=== PATIENT | female | born 1940 | race Caucasian/White ===

== ENCOUNTER 2016-11-18 16:07 | Observation (INO) | payer MEDICARE, OTHER ==
[2016-11-18] MEDS ORDERED: GADODIAMIDE PF 287 MG/ML 20 ML VIAL (for RAD MRI) IVCONTRAST ONE (16:08)
[2016-11-18 16:17] VITALS: BP 132/58; PULSE 82; RESP 18; TEMP 97; O2SAT 99
[2016-11-18] MEDS ORDERED: ESTR1TAB PO (16:34)
[2016-11-18] MEDS ORDERED: SUMA100T2 PO (16:34)
[2016-11-18] MEDS ORDERED: ALPR0.5T3 PO (16:34)
[2016-11-18] MEDS ORDERED: CALC1TAB87 PO (16:36)
[2016-11-18] MEDS ORDERED: GLUC1CAP16 PO (16:36)
[2016-11-18] MEDS ORDERED: ASPI81CH CHEW (16:36)
[2016-11-18] MEDS ORDERED: VITATAB43 PO (16:36)
--- NOTE | 2016-11-18 16:44 | PD ---
HPI Chief Complaint: Neuro Symptoms/ Deficits Time Seen by Provider: 16:44 Travel History International Travel<30 days: No Contact w/Intl Traveler<30days: No Traveled to known affect area: No History of Present Illness HPI 76-year-old female came to the emergency room with increasing frequency of short lasting episodes of paresthesia and numbness of the right half of her upper lip, upper and lower gums and the right half of her tongue for past 4 days. Since yesterday this is associated with on and off dizziness with the room has been spinning. Today couple of times she also felt her right index and middle finger to go numb as well. No history of any weakness of her either of her extremities. Patient has a history of macular degeneration and hence not much visual change than her baseline. She had gone to her retina specialist when the dizziness started again at which point she was recommended to come to the emergency room to be evaluated. No history of headache or chest pain. Vital signs were stable. Prior to these 4 days patient has never had this kind of symptoms before. She has no history of CVA. Patient has history of migraines but has not had it for many years. Patient says that each time she gets these episodes they last less than 5 minutes. They have been increasing in frequency and number since this started. Her last episode was at around 3:30 PM today. [facility] Past Medical History Narrative Medical List of her past medical, surgical, social and family history is reviewed from the nursing note. Arthritis: Yes Migraines: Yes Tetanus Vaccination: < 5 Years Influenza Vaccination: Yes ?: Not Past Surgical History Hysterectomy: Yes Tonsillectomy: Yes Other Surgery: Yes (cysts removed on bilat breast, skin cancer removed from right arm) Social History Alcohol Use: No Tobacco Use: No Substance Use: No Allergies-Medications (Allergen,Severity, Reaction): Coded Allergies: Penicillins (Verified Allergy, Severe, 11/18/16) Comments List of her allergies reviewed from the nursing note. Reported Meds & Prescriptions Reported Meds & Active Scripts Active Reported Avastin Inj (Bevacizumab) 25 Mg/Ml Inj 25 Mg PO MONTHLY Glucosamine Chondroitin (Atfedfrmmvm-Fukrlxpjjav-Aep C-) 500 Mg-400 Mg Cap 1, 000 Mg PO DAILY Calcium 600 with Vitamin D (Calcium Carbonate-Cholecalciferol) 600-400 mg-Unit Tab 1 Tab PO DAILY Vitamin G35-Hfnhi Acid (Cobalamine Combinations) 500-400 Mcg Tab 1 Tab PO DAILY Alprazolam 0.5 Mg Tab 0.5 Mg PO HS PRN Narrative Medication List of her home medications reviewed from the nursing note. Review of Systems Except as stated in HPI: all other systems reviewed are Neg Physical Exam Narrative GENERAL: Awake, alert, elderly, no obvious distress SKIN: Focused skin assessment warm/dry. HEAD: Atraumatic. Normocephalic. EYES: Pupils equal and round. No scleral icterus. No injection or drainage. ENT: No nasal bleeding or discharge. Mucous membranes pink and moist. NECK: Trachea midline. No JVD. CARDIOVASCULAR: Regular rate and rhythm. No murmur appreciated. RESPIRATORY: No accessory muscle use. Clear to auscultation. Breath sounds equal bilaterally. GASTROINTESTINAL: Abdomen soft, non-tender, nondistended. Hepatic and splenic margins not palpable. MUSCULOSKELETAL: No obvious deformities. No clubbing. No cyanosis. No edema. NEUROLOGICAL: Awake and alert. No obvious cranial nerve deficits. Motor grossly within normal limits. Normal speech. NIH stroke score of 0. PSYCHIATRIC: Appropriate mood and affect; insight and judgment normal. Data Data Last Documented VS Vital Signs Date Time Temp Pulse Resp B/P (MAP) Pulse Ox O2 Delivery O2 Flow Rate FiO2 11/18/16 19:15 74 18 129/53 (78) 99 Room Air 11/18/16 16:17 97.0 Orders Orders Electrocardiogram (11/18/16 16:53) Prothrombin Time / Inr (Pt) (11/18/16 16:53) Complete Blood Count With Diff (11/18/16 16:53) Basic Metabolic Panel (Bmp) (11/18/16 16:53) Troponin I (11/18/16 16:53) Urinalysis - C+S If Indicated (11/18/16 16:53) Ct Brain W/O Iv Contrast(Rout) (11/18/16 16:53) Ecg Monitoring (11/18/16 16:53) Iv Access Insert/Monitor (11/18/16 16:53) Oximetry (11/18/16 16:53) Sodium Chloride 0.9% Flush (Ns Flush) (11/18/16 17:00) Sodium Chlor 0.9% 250 Ml Inj (Ns 250 Ml (11/18/16 17:00) Mri Brain W&W/O Contrast (11/18/16 ) Mra Brain W/O Contrast (Cow) (11/18/16 ) Aspirin (Aspirin) (11/18/16 17:45) Westergren Sedimentation Rate (11/18/16 17:43) Vitamin B12 (11/18/16 17:43) Holter Monitor Recording (11/18/16 17:43) Filling Station Attendant / Telemetry DYLON.Q8H (11/18/16 17:43) [place] (11/18/16 17:43) ^ Other Nursing Orders (11/18/16 17:43) Aspirin Ec (Ecotrin Ec) (11/18/16 18:00) Sodium Chlor 0.9% 1000 Ml Inj (Ns 1000 M (11/18/16 17:43) Lipid Profile (11/18/16 17:43) Scd&Teds Bilateral/Knee High DYLON.QSHIFT (11/18/16 17:43) Sodium Chlor 0.9% 1000 Ml Inj (Ns 1000 M (11/18/16 18:43) Resp Bipap / Cpap Non Invas Vt (11/18/16 ) Thyroid Stimulating Hormone (11/18/16 18:15) Mra Carotids W Contrast (11/18/16 ) Urine Culture (11/18/16 19:20) Gadodiamide Pf Inj (Omniscan Pf Inj) (11/18/16 16:08) Meclizine (Antivert) (11/18/16 21:15) Place In Observation (11/18/16 ) Vital Signs (Adult) Q4H (11/18/16 21:38) Activity Oob With Assistance (11/18/16 21:38) Diet Regular Basic (11/19/16 Breakfast) Sodium Chlor 0.9% 1000 Ml Inj (Ns 1000 M (11/18/16 21:38) Sodium Chloride 0.9% Flush (Ns Flush) (11/18/16 21:45) Sodium Chloride 0.9% Flush (Ns Flush) (11/19/16 09:00) Ondansetron Inj (Zofran Inj) (11/18/16 21:45) Comprehensive Metabolic Panel (11/19/16 06:00) Complete Blood Count With Diff (11/19/16 06:00) Pt Request For Service (11/18/16 21:38) Case Management Consult (11/18/16 21:38) Scd Bilateral/Knee High DYLON.BID (11/18/16 21:38) Jayson Bilateral/Knee High DYLON.QSHIFT (11/18/16 21:40) Acetaminophen (Tylenol) (11/18/16 21:45) Acetamin-Hydrocod 325-5 Mg ([place] 5-325 (11/18/16 21:45) Acetamin-Hydrocod 325-10 Mg ([place] 10-32 (11/18/16 21:45) Docusate Sodium-Senna (Kylah-Colace) (11/19/16 09:00) Magnesium Hydroxide Liq (Milk Of Magnesi (11/18/16 21:45) Sennosides (Senokot) (11/18/16 21:45) Bisacodyl Supp (Dulcolax Supp) (11/18/16 21:45) Lactulose Liq (Lactulose Liq) (11/18/16 21:45) Alprazolam (Xanax) (11/18/16 21:45) Aspirin Chew (Aspirin Chew) (11/19/16 09:00) Estradiol (Estradiol) (11/19/16 09:00) Admit Order (Ed Use Only) (11/18/16 21:42) Echo 2d Comp With Doppler (11/19/16 17:43) Labs Laboratory Tests Test 11/18/16 18:15 11/18/16 19:20 White Blood Count 10.4 TH/MM3 Red Blood Count 4.61 MIL/MM3 Hemoglobin 13.2 GM/DL Hematocrit 40.7 % Mean Corpuscular Volume 88.3 FL Mean Corpuscular Hemoglobin 28.7 PG Mean Corpuscular Hemoglobin Concent 32.5 % Red Cell Distribution Width 14.2 % Platelet Count 278 TH/MM3 Mean Platelet Volume 8.8 FL CBC Comment AUTO DIFF Differential Total Cells Counted 100 Neutrophils % (Manual) 79 % Lymphocytes % 10 % Monocytes % 9 % Eosinophils % 1 % Basophils % 1 % Neutrophils # (Manual) 8.2 TH/MM3 Differential Comment FINAL DIFF MANUAL Platelet Estimate NORMAL Platelet Morphology Comment NORMAL Red Cell Morphology Comment NORMAL Erythrocyte Sedimentation Rate 11 mm/hr Prothrombin Time 11.2 SEC Prothromb Time International Ratio 1.0 RATIO Blood Urea Nitrogen 15 MG/DL Creatinine 1.10 MG/DL Random Glucose 87 MG/DL Calcium Level 9.4 MG/DL Sodium Level 140 MEQ/L Potassium Level 4.6 MEQ/L Chloride Level 108 MEQ/L Carbon Dioxide Level 23.7 MEQ/L Anion Gap 8 MEQ/L Estimat Glomerular Filtration Rate 48 ML/MIN Troponin I LESS THAN 0.02 NG/ML Triglycerides Level 109 MG/DL Cholesterol Level 218 MG/DL LDL Cholesterol 128 MG/DL HDL Cholesterol 68.2 MG/DL Cholesterol/HDL Ratio 3.19 RATIO Vitamin B12 Level GREATER THAN 2000 PG/ML Thyroid Stimulating Hormone 3rd Gen 2.820 uIU/ML Urine Color YELLOW Urine Turbidity CLEAR Urine pH 6.0 Urine Specific [place] 1.007 Urine Protein NEG mg/dL Urine Glucose (UA) NEG mg/dL Urine Ketones 15 mg/dL Urine Occult Blood NEG Urine Nitrite NEG Urine Bilirubin NEG Urine Leukocyte Esterase TRACE Urine RBC 0-3 /hpf Urine WBC 15-19 /hpf Urine Squamous Epithelial Cells 0-5 /hpf Urine Bacteria MANY /hpf Microscopic Urinalysis Comment CATH-CULTURE IND MDM Medical Decision Making Medical Screen Exam Complete: Yes Emergency Medical Condition: Yes Medical Record Reviewed: Yes Interpretation(s) Twelve-lead EKG was reviewed by me. Normal sinus rhythm, normal axis, nonspecific ST-T wave changes. Heart rate of 74 bpm. Differential Diagnosis TIA, stuttering stroke Narrative Course 5:39 PM given her symptoms I'm really concerned about frequent TIAs, stuttering stroke. I ordered a CT scan of her brain which was negative for any bleed. I' ll give her 1 full strength aspirin. I put a call out for the neurologist. Awaiting for the blood test result. Patient definitely needs to be brought in for further workup. I've ordered MRI and MRA which is pending. 5:57 PM I discussed the case with the neurologist Dr. Pena who agreed that patient should have the MRI and MRA. He wants the head end of the bed flat and fluid. 7:02 PM awaiting for the MRI and MRA. Patient will be signed over to the oncoming ER physician. Procedures EKG Prior to Arrival: No Scripts Atorvastatin (Atorvastatin) 40 Mg Tab 80 MG PO DAILY for Cholesterol Management, #30 TAB Prov: Kimberly Jackson MD 11/20/16 Clopidogrel (Plavix) 75 Mg Tab 75 MG PO DAILY for prevent stroke, #30 TAB Prov: Kimberly Jackson MD 11/20/16 Fish Oil-Cholecalciferol ([place]-3 Fish Oil/Vitamin) 1,000-1,000 Mg Cap 1 CAP PO BID for Nutritional Supplement, #60 CAP 0 Refills Prov: Kimberly Jackson MD 11/20/16 Aspirin (Aspirin) 81 Mg Chew 81 MG CHEW DAILY for prevent stroke, #2 TAB 0 Refills stop after 2 days Prov: Kimberly Jackson MD 11/20/16 Aldo Wing MD Nov 18, 2016 16:44
[2016-11-18] MEDS ORDERED: SODIUM CHLORIDE 0.9% FLUSH 10 ML FLUSH IVF PRN (17:00)
[2016-11-18] MEDS ORDERED: SODIUM CHLOR 0.9% 250 ML INJ 250 ML IV ONE (17:00)
[2016-11-18] MEDS ORDERED: BEVA100P PO (17:06)
--- NOTE | 2016-11-18 17:30 | RADRPT ---
EXAM DATE/TIME: 11/18/2016 17:18 [facility] COMPARISON: No previous studies available for comparison. INDICATIONS : Dizziness and intermittent right facial numbness x 5 days. Evaluate for cerebrovascular accident. RADIATION DOSE: 62.63 CTDIvol (mGy) MEDICAL HISTORY : None SURGICAL HISTORY : Hysterectomy. ENCOUNTER: Initial ACUITY: 4 - 6 days PAIN SCALE: 0/10 LOCATION: Bilateral cranial TECHNIQUE: Multiple contiguous axial images were obtained of the head. Using automated exposure control and adj ustment of the mA and/or kV according to patient size, radiation dose was kept as low as reasonably a chievable to obtain optimal diagnostic quality images. DICOM format image data is available electro nically for review and comparison. FINDINGS: CEREBRUM: The ventricles are normal for age. No evidence of midline shift, mass lesion, hemorrhage or acute in farction. No extra-axial fluid collections are seen. POSTERIOR FOSSA: The cerebellum and brainstem are intact. The 4th ventricle is midline. The cerebellopontine angle i s unremarkable. EXTRACRANIAL: The visualized portion of the orbits is intact. SKULL: The calvaria is intact. No evidence of skull fracture. CONCLUSION: 1. No acute intracranial abnormality. Luisito Morrison MD on November 18, 2016 at 17:27 Board Certified Radiologist. This report was verified electronically.
[2016-11-18] MEDS ORDERED: SODIUM CHLOR 0.9% 1000 ML INJ 1,000 ML IV SCH ×2 (17:43→18:43)
[2016-11-18] MEDS ORDERED: ASPIRIN 325 MG TAB PO ONE (17:45)
[2016-11-18] MEDS ORDERED: ASPIRIN EC 325 MG TABEC PO SCH (18:00)
[2016-11-18 18:26] LABS: HEMATOCRIT 40.7 % (35.0-46.0); MEAN CELL VOLUME 88.3 FL (80.0-100.0); MEAN CORPUSCULAR HEMOGLOBIN 28.7 PG (27.0-34.0); MEAN CORPUSCULAR HGB CONC 32.5 % (32.0-36.0); PLATELET COUNT 278 TH/MM3 (150-450); RED BLOOD COUNT 4.61 MIL/MM3 (4.00-5.30); RED CELL DISTRIBUTION WIDTH 14.2 % (11.6-17.2); WHITE BLOOD COUNT 10.4 TH/MM3 (4.0-11.0)
[2016-11-18 18:29] LABS: HEMO FLAGS AUTO DIFF
[2016-11-18 18:30] LABS: CHLORIDE 108 MEQ/L (98-107); POTASSIUM 4.6 MEQ/L (3.5-5.1); SODIUM (NA) 140 MEQ/L (136-145)
[2016-11-18 18:33] LABS: ANION GAP 8 MEQ/L (5-15); BICARBONATE 23.7 MEQ/L (21.0-32.0); BLOOD UREA NITROGEN 15 MG/DL (7-18)
[2016-11-18 18:35] LABS: PROTHROMBIN TIME - PATIENT 11.2 SEC (9.8-11.6)
[2016-11-18 18:36] LABS: GLOMERULAR FILTRATION RATE 48 ML/MIN (>89)
[2016-11-18 18:38] VITALS: O2SAT 100
[2016-11-18 19:15] VITALS: BP 129/53; PULSE 74; RESP 18; O2SAT 99
[2016-11-18 19:24] LABS: BASOPHILS 1 % (0-2); EOSINOPHILS 1 % (0-4); NEUTROPHIL # MANUAL DIFF 8.2 TH/MM3 (1.8-7.7); POLYS (SEG NEUTROPHILS) 79 % (16-70); WBC DIFF SAMPLE 100
[2016-11-18 19:25] LABS: PLATELET ESTIMATE SMEAR NORMAL (NORMAL); PLATELET MORPHOLOGY NORMAL (NORMAL); SCAN/DIFF FINAL DIFF MANUAL
[2016-11-18 19:33] LABS: BLOOD, URINE NEG (NEG); GLUCOSE,URINE NEG (NEG); KETONE, URINE 15 mg/dL (NEG); NITRITE,URINE NEG (NEG)
[2016-11-18 19:40] LABS: URINE COLOR YELLOW (YELLW/STRAW)
[2016-11-18 19:41] LABS: BACTERIA, URINE MANY /hpf; COMMENT (UR) CATH-CULTURE IND; CULTURE IF INDICATED CATH CULTURE IND; RBC, URINE 0-3 /hpf (0-3); SQUAMOUS EPITHELIAL CELL URINE 0-5 /hpf (0-5); WBC, URINE 15-19 /hpf (0-5)
[2016-11-18 20:08] LABS: HDL CHOLESTEROL 68.2 MG/DL (40.0-60.0); LDL CHOLESTEROL 128 MG/DL (0-99)
--- NOTE | 2016-11-18 20:30 | RADRPT ---
EXAM DATE/TIME: 11/18/2016 19:46 [facility] COMPARISON: CT BRAIN W/O CONTRAST, November 18, 2016, 17:18. INDICATIONS : Dizziness. Right facial numbness. CONTRAST: 20 cc Omniscan (gadodiamide) IV MEDICAL HISTORY : Arthritis. SURGICAL HISTORY : Tonsillectomy. Hysterectomy. ENCOUNTER: Initial ACUITY: 1 day PAIN SCORE: 0/10 LOCATION: cranial TECHNIQUE: Multiplanar, multisequence MRI of the brain was performed both prior to and following the administrat ion of paramagnetic contrast. FINDINGS: CEREBRUM: The ventricles are normal for age. No evidence of midline shift, mass lesion, hemorrhage or acute in farction. No extraaxial fluid collections are seen. The pituitary gland and suprasellar cistern are normal in configuration. WHITE MATTER: No significant signal abnormalities are seen in the white matter. POSTERIOR FOSSA: The cerebellum and brainstem are intact. The 4th ventricle is midline. The cerebellopontine angle is unremarkable. The cerebellar tonsils are normal in position. DIFFUSION IMAGING: No focal areas of restricted diffusion are seen. No evidence of acute infarction. EXTRACRANIAL: The visualized portions of the orbits and paranasal sinuses are unremarkable. POST-CONTRAST: No abnormal areas of parenchymal or dural enhancement. No evidence of blood-brain barrier breakdown. CONCLUSION: No infarct or other acute intracranial abnormality. Jeanmarie Sam MD on November 18, 2016 at 20:27 Board Certified Radiologist. This report was verified electronically.
--- NOTE | 2016-11-18 20:30 | RADRPT ---
EXAM DATE/TIME: 11/18/2016 19:46 [facility] COMPARISON: MRI BRAIN W & W/O CONTRAST, November 18, 2016, 19:46. CT BRAIN W/O CONTRAST, November 18, 2016, 1 7:18. INDICATIONS : Dizziness. Right facial numbness. MEDICAL HISTORY : Arthritis. SURGICAL HISTORY : Tonsillectomy. Hysterectomy. ENCOUNTER: Initial ACUITY: 1 day PAIN SCORE: 0/10 LOCATION: cranial Please note a normal MRA of the brain does not entirely exclude the possibility of a small aneurysm, nor the possibility of distal intracranial vessel disease. TECHNIQUE: 3D time of flight MRA was performed. Source images, multiplanar STS MIP, and 3D volume MIP reconstru ctions were reviewed. FINDINGS: There is excellent visualization of the major intracranial arteries out to the second-order branch ve ssels. There is no evidence for aneurysm, vessel truncation or stenosis, and no evidence for vascula r malformation. CONCLUSION: Intracranial arteries are within normal limits. Jeanmarie Sam MD on November 18, 2016 at 20:29 Board Certified Radiologist. This report was verified electronically.
--- NOTE | 2016-11-18 20:32 | RADRPT ---
EXAM DATE/TIME: 11/18/2016 19:46 [facility] COMPARISON: No previous studies available for comparison. INDICATIONS : Dizziness. CONTRAST: 20 cc Omniscan (gadodiamide) IV MEDICAL HISTORY : Arthritis. SURGICAL HISTORY : Tonsillectomy. Hysterectomy. ENCOUNTER: Initial ACUITY: 1 day PAIN SCORE: 0/10 LOCATION: neck Percent stenosis is calculated using the diameter of the stenotic region over the diameter of the nor mal distal internal carotid artery. TECHNIQUE: Bolus infused MRA of the extracranial circulation was performed using a neurovascular coil. Post pro cessing was performed including rotating subvolume maximum intensity projections of each carotid [place] ry, rotating full volume maximum intensity projections of both carotid arteries, sagittal and coronal sliding thin slab reformations of each carotid artery, and left oblique sliding thin slab reformatio n through the aortic arch to include the origin of the arch branch vessels. FINDINGS: AORTIC ARCH: There is a three vessel origin of the great vessels from the aorta. No evidence of ostial narrowing. RIGHT CAROTID: The common carotid artery is intact. The carotid bulb has a normal configuration without ulceration or narrowing. The internal carotid artery lumen is smooth without stenosis. The external carotid ar radha is intact. LEFT CAROTID: The common carotid artery is intact. The carotid bulb has a normal configuration without ulceration or narrowing. The internal carotid artery lumen is smooth without stenosis. The external carotid ar radha is intact. VERTEBRALS: The vertebral arteries have a symmetric diameter. No stenotic lesions are seen. CONCLUSION: Normal carotid MRA. Jeanmarie Sam MD on November 18, 2016 at 20:30 Board Certified Radiologist. This report was verified electronically.
[2016-11-18] MEDS ORDERED: MECLIZINE HCL 25 MG TAB PO ONE (21:15)
--- NOTE | 2016-11-18 21:33 | PD ---
Physical Exam Time Seen by Provider: 21:[address] Wing left this patient with me to check the results of the MRI/MRAs and make a disposition. Data Data Last Documented VS Vital Signs Date Time Temp Pulse Resp B/P (MAP) Pulse Ox O2 Delivery O2 Flow Rate FiO2 11/18/16 18:38 100 Room Air 11/18/16:17 97.0 82 18 132/58 (82) Orders Orders Electrocardiogram (11/18/16 16:53) Prothrombin Time / Inr (Pt) (11/18/16 16:53) Complete Blood Count With Diff (11/18/16 16:53) Basic Metabolic Panel (Bmp) (11/18/16 16:53) Troponin I (11/18/16 16:53) Urinalysis - C+S If Indicated (11/18/16 16:53) Ct Brain W/O Iv Contrast(Rout) (11/18/16 16:53) Ecg Monitoring (11/18/16 16:53) Iv Access Insert/Monitor (11/18/16 16:53) Oximetry (11/18/16 16:53) Sodium Chloride 0.9% Flush (Ns Flush) (11/18/16 17:00) Sodium Chlor 0.9% 250 Ml Inj (Ns 250 Ml (11/18/16 17:00) Mri Brain W&W/O Contrast (11/18/16 ) Mra Brain W/O Contrast (Cow) (11/18/16 ) Aspirin (Aspirin) (11/18/16 17:45) Westergren Sedimentation Rate (11/18/16 17:43) Vitamin B12 (11/18/16 17:43) Echo 2d Comp With Doppler (11/18/16 17:43) Holter Monitor Recording (11/18/16 17:43) Multiple Sclerosis Nurse / Telemetry DYLON.Q8H (11/18/16 17:43) [place] (11/18/16 17:43) ^ Other Nursing Orders (11/18/16 17:43) Aspirin Ec (Ecotrin Ec) (11/18/16 18:00) Sodium Chlor 0.9% 1000 Ml Inj (Ns 1000 M (11/18/16 17:43) Lipid Profile (11/18/16 17:43) Scd&Teds Bilateral/Knee High DYLON.QSHIFT (11/18/16 17:43) Sodium Chlor 0.9% 1000 Ml Inj (Ns 1000 M (11/18/16 18:43) Resp Bipap / Cpap Non Invas Vt (11/18/16 ) Thyroid Stimulating Hormone (11/18/16 18:15) Mra Carotids W Contrast (11/18/16 ) Urine Culture (11/18/16 19:20) Gadodiamide Pf Inj (Omniscan Pf Inj) (11/18/16 16:08) Meclizine (Antivert) (11/18/16 21:15) Labs Laboratory Tests Test 11/18/16 18:15 11/18/16 19:20 White Blood Count 10.4 TH/MM3 Red Blood Count 4.61 MIL/MM3 Hemoglobin 13.2 GM/DL Hematocrit 40.7 % Mean Corpuscular Volume 88.3 FL Mean Corpuscular Hemoglobin 28.7 PG Mean Corpuscular Hemoglobin Concent 32.5 % Red Cell Distribution Width 14.2 % Platelet Count 278 TH/MM3 Mean Platelet Volume 8.8 FL CBC Comment AUTO DIFF Differential Total Cells Counted 100 Neutrophils % (Manual) 79 % Lymphocytes % 10 % Monocytes % 9 % Eosinophils % 1 % Basophils % 1 % Neutrophils # (Manual) 8.2 TH/MM3 Differential Comment FINAL DIFF MANUAL Platelet Estimate NORMAL Platelet Morphology Comment NORMAL Red Cell Morphology Comment NORMAL Erythrocyte Sedimentation Rate 11 mm/hr Prothrombin Time 11.2 SEC Prothromb Time International Ratio 1.0 RATIO Blood Urea Nitrogen 15 MG/DL Creatinine 1.10 MG/DL Random Glucose 87 MG/DL Calcium Level 9.4 MG/DL Sodium Level 140 MEQ/L Potassium Level 4.6 MEQ/L Chloride Level 108 MEQ/L Carbon Dioxide Level 23.7 MEQ/L Anion Gap 8 MEQ/L Estimat Glomerular Filtration Rate 48 ML/MIN Troponin I LESS THAN 0.02 NG/ML Triglycerides Level 109 MG/DL Cholesterol Level 218 MG/DL LDL Cholesterol 128 MG/DL HDL Cholesterol 68.2 MG/DL Cholesterol/HDL Ratio 3.19 RATIO Vitamin B12 Level GREATER THAN 2000 PG/ML Thyroid Stimulating Hormone 3rd Gen 2.820 uIU/ML Urine Color YELLOW Urine Turbidity CLEAR Urine pH 6.0 Urine Specific [place] 1.007 Urine Protein NEG mg/dL Urine Glucose (UA) NEG mg/dL Urine Ketones 15 mg/dL Urine Occult Blood NEG Urine Nitrite NEG Urine Bilirubin NEG Urine Leukocyte Esterase TRACE Urine RBC 0-3 /hpf Urine WBC 15-19 /hpf Urine Squamous Epithelial Cells 0-5 /hpf Urine Bacteria MANY /hpf Microscopic Urinalysis Comment CATH-CULTURE IND MDM Medical Record Reviewed: Yes Supervised Visit with MOI: Yes Differential Diagnosis Ischemic CVA, intracranial bleed, brain tumor-unlikely, carotid artery stenosis , TIA Narrative Course The patient appears to have a TIA. The patient did not want to go home because of the dizziness. She will be admitted to the [facility] service for 23 hour observation. I discussed the patient with Dr. Qureshi. Also discussed the patient with Dr. Zapata. The patient insisted on being admitted and she will be admitted for [address] Qureshi is willing to see the patient on Monday but the patient did not want to go home. Diagnosis Primary Impression: TIA (transient ischemic attack) Admitting Information Admitting Physician Requests: Observation Chip Fajardo MD Nov 18, 2016 21:33
[2016-11-18] MEDS ORDERED: LACTULOSE SYRUP 20 GM/30 ML CUP PO PRN (21:45)
[2016-11-18] MEDS ORDERED: ONDANSETRON HCL 4 MG/2 ML VIAL IVP PRN (21:45)
[2016-11-18] MEDS ORDERED: MAGNESIUM HYDROXIDE SUSP 30 ML CUP PO PRN (21:45)
[2016-11-18] MEDS ORDERED: ACETAMINOPHEN/HYDROcodone 325 MG/10 MG TAB PO PRN (21:45)
[2016-11-18] MEDS ORDERED: SODIUM CHLORIDE 0.9% FLUSH 10 ML FLUSH IV FLUSH PRN (21:45)
[2016-11-18] MEDS ORDERED: SENNOSIDES 8.6 MG TAB PO PRN (21:45)
[2016-11-18] MEDS ORDERED: ACETAMINOPHEN 325 MG TAB PO PRN (21:45)
[2016-11-18] MEDS ORDERED: BISACODYL 10 MG SUPP RECTAL PRN (21:45)
[2016-11-18] MEDS ORDERED: ACETAMINOPHEN/HYDROcodone 325 MG/5 MG TAB PO PRN (21:45)
[2016-11-18] MEDS ORDERED: ALPRAZolam 0.5 MG TAB PO PRN (21:45)
[2016-11-18] MEDS: SODIUM CHLOR 0.9% 1000 ML INJ 1,000 ML IV SCH (21:54)
[2016-11-18 22:00] VITALS: BP 113/66; PULSE 71; RESP 16; O2SAT 98
[2016-11-19] VITALS (10 sets, daily range): BP systolic 99–119; BP diastolic 59–70; PULSE 68–77; RESP 16–18; TEMP 96.3–98.8; O2SAT 98–100
--- NOTE | 2016-11-19 06:05 | EKG ---
Date Performed: 11/18/2016 Time Performed: 17:11:19 PTAGE: 76 years EKG: Sinus rhythm INCOMPLETE RIGHT BUNDLE BRANCH BLOCK POSSIBLE LATERAL MYOCARDIAL INFARCTION BORDERLINE ECG NO PREVIOUS TRACING DOCTOR: Norm Barillas Interpretating Date/Time 11/19/2016 06:04:30
[2016-11-19 07:07] LABS: AUTOMATED NEUTROPHIL # 4.3 TH/MM3 (1.8-7.7); BASOPHIL # 0.1 TH/MM3 (0-0.2); BASOPHIL % 1.2 % (0.0-2.0); EOSINOPHIL # 0.1 TH/MM3 (0-0.4); EOSINOPHIL % 2.1 % (0.0-4.0); HEMATOCRIT 37.4 % (35.0-46.0); HEMO FLAGS DIFF FINAL; LYMPH % 20.9 % (9.0-44.0); LYMPHOCYTE # 1.3 TH/MM3 (1.0-4.8); MEAN CELL VOLUME 86.9 FL (80.0-100.0); MEAN CORPUSCULAR HGB CONC 32.3 % (32.0-36.0); MONO % 7.1 % (0.0-8.0); NEUT % 68.7 % (16.0-70.0); PLATELET COUNT 245 TH/MM3 (150-450); RED CELL DISTRIBUTION WIDTH 13.6 % (11.6-17.2); WHITE BLOOD COUNT 6.3 TH/MM3 (4.0-11.0)
[2016-11-19 07:19] LABS: CHLORIDE 113 MEQ/L (98-107); POTASSIUM 4.2 MEQ/L (3.5-5.1); SODIUM (NA) 143 MEQ/L (136-145)
[2016-11-19 07:30] LABS: ALKALINE PHOSPHATASE 66 U/L (45-117); ALT (GPT) 12 U/L (10-53); ANION GAP 8 MEQ/L (5-15); AST (GOT) 16 U/L (15-37); BICARBONATE 22.4 MEQ/L (21.0-32.0); BLOOD UREA NITROGEN 13 MG/DL (7-18); GLOMERULAR FILTRATION RATE 62 ML/MIN (>89); TOTAL BILIRUBIN ADULT 0.4 MG/DL (0.2-1.0)
[2016-11-19] MEDS ORDERED: ASPIRIN 81 MG CHEW TAB CHEW SCH (09:00)
[2016-11-19] MEDS: SODIUM CHLORIDE 0.9% FLUSH 10 ML FLUSH IV FLUSH SCH ×2 (09:00→21:30)
[2016-11-19] MEDS ORDERED: ESTRADIOL 1 MG TAB PO SCH (09:00)
[2016-11-19] MEDS: DOCUSATE SODIUM 50 MG/SENNA 8.6 MG TAB PO SCH ×2 (09:10→21:31)
[2016-11-19] MEDS ORDERED: CLOPIDOGREL 75 MG TAB PO ONE (09:15)
[2016-11-19] MEDS: ASPIRIN 325 MG TAB PO SCH (10:15)
--- NOTE | 2016-11-19 11:00 | MB ---
cc: [facility] DATE OF CONSULTATION: 11/19/2016 REASON FOR CONSULTATION: 76-year-old left-handed woman with a history of peptic ulcer disease, some squamous cell skin cancers, macular degeneration, especially in the left eye. She does take a baby aspirin a day. She feels like her balance has been off for about a week. Then this last Monday she began having episodes about one a day where her right corner of her mouth the upper lip, lower lip, teeth and tongue become numb, not pins and needles but numb for a short period of time, maybe a minute or two, no slurred speech or facial droop with it and then it seems to go away. This happened on the phone on Monday, happened again twice about 7:00 and 08:30 p.m. on Monday, happened again on Monday, then her first two digits were involved at that time. She does not take it happened on , happened three times yesterday and one time she felt dizzy with possibly some slight vertigo with that. PAST MEDICAL HISTORY: As above. History of migraine headaches, although she did take an Imitrex yesterday even though she was not having headache. Although with the migraines she never had any episodes of numbness or tingling ALLERGIES PENICILLIN. MEDICATIONS AT HOME 1. Estradiol. 2. Alprazolam I 3. Sumatriptan p.r.n. 4. Vitamin B12. 5. Aspirin 81 mg 6. injections in the eye of Avastin REVIEW OF SYSTEMS Review of systems she denies any history of hypertension, diabetes, hypercholesterolemia, myocardial infarction, coronary artery bypass graft, stent, angioplasty, atrial fibrillation, Coumadin, renal, hepatic or pulmonary disease, thyroid disease, lupus, cancer, seizure, known stroke. SOCIAL HISTORY: Not a drinker, lives alone, her of Alzheimer's disease last year. FAMILY HISTORY: Family history is a positive for sister with cancer, negative for seizures, positive stroke. PHYSICAL EXAMINATION: VITAL SIGNS: Afebrile 73, 16, 105/61. NECK: There were no carotid or vertebral bruits. HEART: Regular rhythm, I did not detect a murmur. NEUROLOGIC: Pupils equal, visual amezquita are full, OD/OS, he has restricted field due to the macular degeneration. Extraocular muscles intact without nystagmus. The face is symmetric with normal station, especially at the corner of her mouth, tongue was midline. There is no drift. She had normal strength in upper lower extremities bilaterally. Movements are symmetric and normal especially in the right hand. DTRs are trace throughout. Toes downgoing bilaterally. Pinprick and vibratory sense are intact throughout this is a right hand. She is not ataxic on [id number]. Speech is fluent. She is not aphasic. This also put in my exam her Hallpike maneuver was markedly positive left I did the abdomen of at times three starting on the left LABORATORY DATA CBC is normal, sed rate 11. UA 15-19 white cells, trace leuko esterase. Basic metabolic profile essentially normal. Liver function tests normal. Albumin 3.0, LDL cholesterol 128. B12 high greater than 2000. TSH normal. Troponin negative. Coags normal. CT scan of the brain negative. MRI of the brain read as normal. MRA of [place] normal. MRA of the neck read as normal. Review of the films MRI does not show any abnormality on the diffusion image it is essentially in the brain stem. I do not see any old ischemic areas in the brain stem either. She had some fluid in the left greater than right mastoid region. An MRA of the neck, I reviewed the films. MRA [place] and basilar arteries intact for 2-0 basilar system is intact. MRA [place] films on my review, again the basilar artery looks fine as do all the other arteries. Posterior cerebral arteries come off the basilar system bilaterally. IMPRESSION The patient appears to have some incidental left benign positional vertigo with some fluid in the mastoid. The odd thing and more concerning is the numbness on the right corner of her mouth and at times in her fingers indicating TIA. Think this is probably a dental appliance mechanic lacunar type artery problem. We are going to switch her to Plavix and in 3 days she can stop her aspirin. I want to keep her well hydrated. We will see what her echocardiogram looks like. She needs to get started on a statin by the med team I would have her stop her Imitrex and her hormones and I will be following her with you in the hospital, I think that she will have to stay another day there until these episodes quiet down a bit. We will keep her fluids running during this episode in fact I am going to increase her fluids to 100 cc's per hour. MD MONIQUE Noyola/jaime /8:45 AM /10:08 AM
[2016-11-19] MEDS: ATORVASTATIN 40 MG TAB PO SCH (11:13)
--- NOTE | 2016-11-19 12:42 | ECHRPT ---
Indication: cva/tia CONCLUSIONS Normal left ventricular size. Wall thickness is normal. The left ventricular systolic function is normal with an estimated ejection fraction in the range of 55-60%. Mild mitral annular calcification. Mild thickening of the mitral valve leaflets. Trace mitral valve regurgitation. Aortic valve sclerosis is present. Mild aortic valve regurgitation. The tricuspid valve is not well visualized. There is mild tricuspid valve regurgitation. The pulmonary valve is not well visualized. BP: / HR: Rhythm: MEASUREMENTS (Male / Female) Normal Values Technical Quality:Fair 2D ECHO LV Diastolic Diameter PLAX 4.4 cm 4.2 - 5.9 / 3.9 - 5.3 cm LV Systolic Diameter PLAX 3.5 cm IVS Diastolic Thickness 1.0 cm 0.6 - 1.0 / 0.6 - 0.9 cm LVPW Diastolic Thickness 0.6 cm 0.6 - 1.0 / 0.6 - 0.9 cm LV Relative Wall Thickness 0.4 RV Internal Dim ED PLAX 1.9 cm LA Systolic Diameter LX 3.2 cm 3.0 - 4.0 / 2.7 - 3.8 cm M-MODE Aortic Root Diameter MM 3.5 cm AV Cusp Separation MM 2.3 cm DOPPLER AV Peak Velocity 160.0 cm/s AV Peak Gradient 10.2 mmHg AI Peak Velocity 246.0 cm/s AI Peak Gradient 24.2 mmHg AI Pressure Half Time 544.0 ms Mitral E Point Velocity 85.9 cm/s Mitral A Point Velocity 104.0 cm/s Mitral E to A Ratio 0.8 TR Peak Velocity 270.0 cm/s TR Peak Gradient 29.2 mmHg FINDINGS LEFT VENTRICLE Normal left ventricular size. Wall thickness is normal. The left ventricular systolic function is normal with an estimated ejection fraction in the range of 55-60%. RIGHT VENTRICLE Normal right ventricular size and systolic function. LEFT ATRIUM The left atrial size is normal. RIGHT ATRIUM The right atrial size is normal. ATRIAL SEPTUM Normal atrial septal thickness without atrial level shunting by limited color doppler interrogation. AORTA The aortic root and proximal ascending aorta are normal in size on limited imaging. MITRAL VALVE Mild mitral annular calcification. Mild thickening of the mitral valve leaflets. Trace mitral valve regurgitation. AORTIC VALVE Trileaflet aortic valve. Aortic valve sclerosis is present. Mild aortic valve regurgitation. TRICUSPID VALVE The tricuspid valve is not well visualized. Structurally normal tricuspid valve. There is mild tricuspid valve regurgitation. PULMONARY VALVE The pulmonary valve is not well visualized. VESSELS The inferior vena cava is normal in size. PERICARDIUM No pericardial effusion. Norm Barillas MD (Electronically Signed) Final Date:19 November 2016 12:41
--- NOTE | 2016-11-19 17:15 | HHI.HP ---
[facility] Service [facility] Primary Care Physician Valerie Qureshi MD Admission Diagnosis TIA Diagnoses: (1) Paresthesia Diagnosis: Principal (2) Dizziness Diagnosis: Principal Chief Complaint: Lip numbness, tingling and dizziness Travel History International Travel<30 Days: No Contact w/Intl Traveler <30 Da: No Traveled to Known Affected Are: No History of Present Illness Written by Hiram Fajardo, acting as scribe for Dr. Jackson on 11/19/16 at 17 :06. 76-year-old female with known history of migraines, constipation who presented to the hospital because her ironworker apprentice shop recommended her to come to the hospital due to dizziness. Patient states that her symptoms started Monday this week when she had a one-time episode of right upper lip, teeth, tongue numbness that lasted for 5-10 minutes. On Monday patient had 2 episodes that was at 8 and 8:30 PM with same symptoms. On Monday she did not have a symptoms she called her primary medical doctor to make an appointment. Then on the patient did not have any numbness sensation, however she did get lightheaded and dizzy whenever she stands. On Monday she went to her primary medical doctor's office at 10:30 for appointment. She was experiencing the lightheadedness and dizziness but did not have any of the numbness. Primary medical doctor did not find any acute abnormality at that visit. Patient did have left knee pain in which she was given a steroid injection for her pain. Patient had appointment at her retina doctor's office at 3 PM. She went there and did not have any paresthesia or numbness but she did have significant lightheadedness and dizziness. She was called by her retinal Dr. and was told to go to the emergency department for evaluation. Patient did present to the hospital and she had difficulty time walking because of the dizziness was so bad. Patient did have another episode of the paresthesia at 9:30 and 10:00 last night. At that time she did have some right upper extremity second and third digit numbness. Patient had workup done emergency department without any acute abnormality. Patient was seen by neurologist this morning and underwent Cynthia maneuver and her dizziness has completely resolved. Neurologist recommending full neurological workup at this time, addition of Plavix. At the time evaluating patient she is asymptomatic. Review of Systems Constitutional: COMPLAINS OF: Dizziness Neurologic: COMPLAINS OF: Paresthesias Except as stated in HPI: all other systems reviewed are Neg Past Family Social History Past Medical History Migraine cephalgia Constipation Past Surgical History Partial hysterectomy Total hysterectomy Tonsillectomy Skin cancer removed from arm Breast lumpectomy Reported Medications Reported Meds & Active Scripts Active Reported Avastin Inj (Bevacizumab) 25 Mg/Ml Inj 25 Mg PO MONTHLY Aspirin 81 Mg Chew 81 Mg CHEW DAILY Glucosamine Chondroitin (Deqmlnpvaqx-Xpbqnuwomtz-Rrt C-) 500 Mg-400 Mg Cap 1, 000 Mg PO DAILY Calcium 600 with Vitamin D (Calcium Carbonate-Cholecalciferol) 600-400 mg-Unit Tab 1 Tab PO DAILY Vitamin L06-Cdflk Acid (Cobalamine Combinations) 500-400 Mcg Tab 1 Tab PO DAILY Sumatriptan (Sumatriptan Succinate) 100 Mg Tab 100 Mg PO ONCE PRN If a satisfactory response has not been obtained at 2 hours, a second dose may be administered Alprazolam 0.5 Mg Tab 0.5 Mg PO HS PRN Estradiol 1 Mg Tab 1 Mg PO DAILY Allergies: Coded Allergies: Penicillins (Verified Allergy, Severe, 11/18/16) Family History Family history as reviewed mother lived till 94 and had a stroke, father in his 60s from cancer Physical Exam Vital Signs Vital Signs Date Time Temp Pulse Resp B/P (MAP) Pulse Ox O2 Delivery O2 Flow Rate FiO2 11/19/16 16:00 96.9 76 16 119/70 (86) 99 11/19/16 15:00 77 11/19/16 12:00 96.3 74 16 99/61 (74) 98 11/19/16 08:00 96.4 73 16 105/61 (76) 99 11/19/16 08:00 73 11/19/16 05:41 16 11/19/16 05:13 98.8 68 16 110/67 (81) 99 11/19/16 02:07 98.4 70 18 117/70 (86) 100 11/19/16 01:25 11/19/16 01:05 72 16 98 Room Air 11/19/16 01:05 71 16 115/60 (78) 99 Room Air 11/18/16 22:00 71 16 113/66 (82) 98 Room Air 11/18/16 22:00 16 98 Room Air 11/18/16 19:15 74 18 129/53 (78) 99 Room Air 11/18/16 18:38 100 Room Air Physical Exam GENERAL: Well-developed, well-nourished, in no acute distress. alert and orientated HEENT: Head is normocephalic without any lesions or masses noted. Facial features are symmetric. Eyes: Pupils equal round reactive to light. Extraocular muscles are intact. Conjunctivae were clear. Oropharyngeal: Pharynx without any erythema edema. Tongue is midline without deviation. Buccal mucosa is moist without any masses or lesions NECK: Supple without any masses. Trachea midline no deviation. No JVD, no bruits are appreciated CARDIAC: Regular rhythm, regular rate. S1/S2 are heard. No murmurs gallops or rubs. LUNGS: Clear to auscultation bilaterally. No wheeze, rhonchi or rales. No use of accessory muscles on inspiration or expiration. ABDOMEN: Soft, nontender. Nondistended. Bowel sounds heard in all 4 quadrants. No organomegaly or masses. Negative rebound, negative guarding EXTREMITIES: No edema, pulses are equal bilaterally. No cyanosis or clubbing NEUROLOGY: Mood and affect appear appropriate. Cranial nerves II through XII grossly intact. Muscle strength 5/5 in upper and lower extremities bilaterally. Deep tendon reflexes are 2+ in upper and lower extremities bilaterally. Laboratory Laboratory Tests Test 11/18/16 18:15 11/18/16 19:20 11/19/16 06:56 White Blood Count 10.4 6.3 Red Blood Count 4.61 4.30 Hemoglobin 13.2 12.1 Hematocrit 40.7 37.4 Mean Corpuscular Volume 88.3 86.9 Mean Corpuscular Hemoglobin 28.7 28.0 Mean Corpuscular Hemoglobin Concent 32.5 32.3 Red Cell Distribution Width 14.2 13.6 Platelet Count 278 245 Mean Platelet Volume 8.8 8.4 CBC Comment AUTO DIFF DIFF FINAL Differential Total Cells Counted 100 Neutrophils % (Manual) 79 Lymphocytes % 10 Monocytes % 9 Eosinophils % 1 Basophils % 1 Neutrophils # (Manual) 8.2 Differential Comment FINAL DIFF MANUAL Platelet Estimate NORMAL Platelet Morphology Comment NORMAL Red Cell Morphology Comment NORMAL Erythrocyte Sedimentation Rate 11 Prothrombin Time 11.2 Prothromb Time International Ratio 1.0 Blood Urea Nitrogen 15 13 Creatinine 1.10 0.88 Random Glucose 87 90 Calcium Level 9.4 8.1 Sodium Level 140 143 Potassium Level 4.6 4.2 Chloride Level 108 113 Carbon Dioxide Level 23.7 22.4 Anion Gap 8 8 Estimat Glomerular Filtration Rate 48 62 Troponin I LESS THAN 0.02 Triglycerides Level 109 Cholesterol Level 218 LDL Cholesterol 128 HDL Cholesterol 68.2 Cholesterol/HDL Ratio 3.19 Vitamin B12 Level GREATER THAN 2000 Thyroid Stimulating Hormone 3rd Gen 2.820 Urine Color YELLOW Urine Turbidity CLEAR Urine pH 6.0 Urine Specific [place] 1.007 Urine Protein NEG Urine Glucose (UA) NEG Urine Ketones 15 Urine Occult Blood NEG Urine Nitrite NEG Urine Bilirubin NEG Urine Leukocyte Esterase TRACE Urine RBC 0-3 Urine WBC 15-19 Urine Squamous Epithelial Cells 0-5 Urine Bacteria MANY Microscopic Urinalysis Comment CATH-CULTURE IND Neutrophils (%) (Auto) 68.7 Lymphocytes (%) (Auto) 20.9 Monocytes (%) (Auto) 7.1 Eosinophils (%) (Auto) 2.1 Basophils (%) (Auto) 1.2 Neutrophils # (Auto) 4.3 Lymphocytes # (Auto) 1.3 Monocytes # (Auto) 0.4 Eosinophils # (Auto) 0.1 Basophils # (Auto) 0.1 Total Protein 5.9 Albumin 3.0 Alkaline Phosphatase 66 Aspartate Amino Transf (AST/SGOT) 16 Alanine Aminotransferase (ALT/SGPT) 12 Total Bilirubin 0.4 Date/Time Source Procedure Growth Status 11/18/16 19:20 Urine Clean Catch Urine Culture Pending Received Result Diagram: 11/19/16 0656 11/19/16 0656 Imaging Last Impressions Head CT 11/18/16 1653 Signed Impressions: Service Date/Time: Friday, November 18, 2016 17:18 - CONCLUSION: 1. No acute intracranial abnormality. Luisito Morrison MD Neck Magnetic Resonance Angiography 11/18/16 0000 Signed Impressions: Service Date/Time: Friday, November 18, 2016 19:46 - CONCLUSION: Normal carotid MRA. Jeanmarie Sam MD Head Magnetic Resonance Angiography 11/18/16 0000 Signed Impressions: Service Date/Time: Friday, November 18, 2016 19:46 - CONCLUSION: Intracranial arteries are within normal limits. Jeanmarie Sam MD Brain MRI 11/18/16 0000 Signed Impressions: Service Date/Time: Friday, November 18, 2016 19:46 - CONCLUSION: No infarct or other acute intracranial abnormality. Jeanmarie Sam MD Caprini VTE Risk Assessment Caprini VTE Risk Assessment: Mod/High Risk (score >= 2) Caprini Risk Assessment Model Point Value = 1 Point Value = 2 Point Value = 3 Point Value = 5 Age 41-60 Minor surgery BMI > 25 kg/m2 Swollen legs Varicose veins or History of unexplained or recurrent spontaneous Oral contraceptives or hormone replacement Sepsis (< 1 month) Serious lung disease, including pneumonia (< 1 month) Abnormal pulmonary function Acute myocardial infarction Congestive heart failure (< 1 month) History of inflammatory bowel disease Medical patient at bed rest Age 61-74 Arthroscopic surgery Major open surgery (> 45 min) Laparoscopic surgery (> 45 min) Malignancy Confined to bed (> 72 hours) Immobilizing plaster cast Central venous access Age >= 75 History of VTE Family history of VTE Factor V Leiden Prothrombin [id number] Lupus anticoagulant Anticardiolipin antibodies Elevated serum homocysteine Heparin-induced thrombocytopenia Other congenital or acquired thrombophilia Stroke (< 1 month) Elective arthroplasty Hip, pelvis, or leg fracture Acute spinal cord injury (< 1 month) Prophylaxis Regimen Total Risk Factor Score Risk Level Prophylaxis Regimen 0-1 Low Early ambulation 2 Moderate Order ONE of the following: *Sequential Compression Device (SCD) *Heparin 5000 units SQ BID 3-4 Higher Order ONE of the following medications: *Heparin 5000 units SQ TID *Enoxaparin/Lovenox 40 mg SQ daily (WT < 150 kg, CrCl > 30 mL/min) *Enoxaparin/Lovenox 30 mg SQ daily (WT < 150 kg, CrCl > 10-29 mL/min) *Enoxaparin/Lovenox 30 mg SQ BID (WT < 150 kg, CrCl > 30 mL/min) AND/OR *Sequential Compression Device (SCD) 5 or more Highest Order ONE of the following medications: *Heparin 5000 units SQ TID (Preferred with Epidurals) *Enoxaparin/Lovenox 40 mg SQ daily (WT < 150 kg, CrCl > 30 mL/min) *Enoxaparin/Lovenox 30 mg SQ daily (WT < 150 kg, CrCl > 10-29 mL/min) *Enoxaparin/Lovenox 30 mg SQ BID (WT < 150 kg, CrCl > 30 mL/min) AND *Sequential Compression Device (SCD) Assessment and Plan Assessment and Plan Neurological symptoms to include oral paresthesia, right upper extremity paresthesia, dizziness Could be secondary to TIA, vertigo, symptoms resolved after Cynthia maneuver CT, MRI, MRA, neck MRA did not indicate any acute abnormality Echocardiogram shows ejection fraction 55-60%, left ventricular function normal Holter monitor on patient telemetry reviewed without any acute abnormality PT/OT/ST Patient started on Plavix Hyperlipidemia LDL 128 Patient started on Lipitor 80 mg daily DVT prevention Sequential compression devices Addendum to Inpatient Note Additional Information This note was transcribed by scribe. I, Dr. Kimberly Jackson personally performed the history, physical exam, and medical decision making; and confirmed the accuracy of the information in the transcribed note. Authenticated by Dr. Kimberly Jackson on 11/19/16 at 17:36. Hiram Fajardo Nov 19, 2016 17:15 Kimberly Jackson MD Nov 19, 2016 17:36
[2016-11-19] MEDS: SODIUM CHLOR 0.9% 1000 ML INJ 1,000 ML IV SCH ×2 (17:38→21:33)
[2016-11-19] MEDS: ACETAMINOPHEN/HYDROcodone 325 MG/5 MG TAB PO PRN (18:59)
[2016-11-20] VITALS: BP 93/53; PULSE 72; RESP 16; TEMP 98.2; O2SAT 100
[2016-11-20] MEDS: ACETAMINOPHEN/HYDROcodone 325 MG/5 MG TAB PO PRN ×2 (02:22→10:07)
[2016-11-20] MEDS: SODIUM CHLOR 0.9% 1000 ML INJ 1,000 ML IV SCH ×2 (03:38→13:38)
[2016-11-20 05:11] VITALS: BP 95/62; PULSE 68; RESP 18; TEMP 98.8; O2SAT 99
[2016-11-20 08:00] VITALS: BP 113/71; PULSE 71; RESP 17; TEMP 95.7; O2SAT 100
[2016-11-20] MEDS: DOCUSATE SODIUM 50 MG/SENNA 8.6 MG TAB PO SCH (09:00)
[2016-11-20] MEDS ORDERED: CLOPIDOGREL 75 MG TAB PO SCH (09:00)
[2016-11-20] MEDS: SODIUM CHLORIDE 0.9% FLUSH 10 ML FLUSH IV FLUSH SCH (10:05)
[2016-11-20] MEDS: ASPIRIN 325 MG TAB PO SCH (10:06)
[2016-11-20] MEDS: ATORVASTATIN 40 MG TAB PO SCH (10:06)
[2016-11-20 12:00] VITALS: BP 124/66; PULSE 66; RESP 18; TEMP 96; O2SAT 99
--- NOTE | 2016-11-20 13:04 | HM ---
Date Performed: 11/18/2016 Time Performed: 21:15:00 HOOKUP DATE: 11/18/16 09:15:00 PM Fri ANALYSIS START TIME: 11/18/2016 9:20:00 PM ANALYSIS END TIME: 11/19/2016 9:22:11 PM PATIENT AGE: 76 PATIENT HEIGHT PATIENT WEIGHT: 169 DRUG LIST PATIENT DIAGNOSIS: Dizziness TEST NARRATIVE: The patient's average heart rate was 75 BPM. No episodes of tachycardia wer e noted. No episodes of bradycardia were noted. No pauses exceeding 2.0 seconds were noted. No ventricular ectopics were noted. 53 supraventricular ectopics, which represented < 1% of the t otal beat count, were noted. The highest supraventricular ectopic frequency occurred from 05:00 AM t o 06:00 AM Sat. During this time 7 SVE(s) occurred. No episodes of ST depression (defined as -1. 0 mm or more) were noted in channel 1. No episodes of ST depression (defined as -1.0 mm or more) wer e noted in channel 2. No episodes of ST depression (defined as -1.0 mm or more) were noted in channe l 3. No diary entries were reported by the patient. TEST INTERPRETATION: Benign Holter monitoring. No significant arrhythmias are recorded. Signed by : Jesse Soriano
--- NOTE | 2016-11-20 13:30 | HHI.PR ---
Subjective Remarks sr Objective Vital Signs Date Time Temp Pulse Resp B/P (MAP) Pulse Ox O2 Delivery O2 Flow Rate FiO2 11/20/16 12:00 96.0 66 18 124/66 (85) 99 11/20/16 11:20 16 11/20/16 08:00 95.7 71 17 113/71 (85) 100 11/20/16 05:11 98.8 68 18 95/62 (73) 99 11/20/16 00:00 98.2 72 16 93/53 (66) 100 11/19/16 21:45 98.1 72 18 104/59 (74) 99 11/19/16 21:30 72 11/19/16 16:00 96.9 76 16 119/70 (86) 99 11/19/16 15:00 77 I/O 11/19/16 11/19/16 11/19/16 11/20/16 11/20/16 11/20/16 07:00 15:00 23:00 07:00 15:00 23:00 Intake Total 786 ml 480 ml 849 ml 795 ml Balance 786 ml 480 ml 849 ml 795 ml Intake Oral 480 ml IV Total 786 ml 849 ml 795 ml # Voids 1 2 3 3 1 # Bowel Movements 0 0 Result Diagram: 11/19/16 0656 11/19/16 06 Objective Remarks face sym nl speecha nd gait 5/5 t/o Assessment and Plan Assessment and Plan imp no new spells ok dc plavix and statin echo nl holter pend Sarwat Pena MD Nov 20, 2016 13:30
[2016-11-20] MEDS ORDERED: ASPI81CH CHEW (13:51)
[2016-11-20] MEDS ORDERED: OMEGCAP PO (13:51)
[2016-11-20] MEDS ORDERED: ATOR40TA16 PO (13:51)
[2016-11-20] MEDS ORDERED: PLAV75TA29 PO (13:51)
--- NOTE | 2016-11-20 13:55 | HHI.PR ---
Subjective Remarks No further perioral paresthesias or dizziness. Objective Vitals Vital Signs Date Time Temp Pulse Resp B/P (MAP) Pulse Ox O2 Delivery O2 Flow Rate FiO2 11/20/16 12:00 96.0 66 18 124/66 (85) 99 11/20/16 11:20 16 11/20/16 08:00 95.7 71 17 113/71 (85) 100 11/20/16 05:11 98.8 68 18 95/62 (73) 99 11/20/16 00:00 98.2 72 16 93/53 (66) 100 11/19/16 21:45 98.1 72 18 104/59 (74) 99 11/19/16 21:30 72 11/19/16 16:00 96.9 76 16 119/70 (86) 99 11/19/16 15:00 77 I/O 11/19/16 11/19/16 11/19/16 11/20/16 11/20/16 11/20/16 07:00 15:00 23:00 07:00 15:00 23:00 Intake Total 786 ml 480 ml 849 ml 795 ml Balance 786 ml 480 ml 849 ml 795 ml Intake Oral 480 ml IV Total 786 ml 849 ml 795 ml # Voids 1 2 3 3 1 # Bowel Movements 0 0 Result Diagram: 11/19/1656 11/19/16655 Objective Remarks GENERAL: Well-nourished, well-developed patient. SKIN: Warm and dry. HEAD: Normocephalic. EYES: No scleral icterus. No injection or drainage. NECK: Supple, trachea midline. No JVD or lymphadenopathy. CARDIOVASCULAR: Regular rate and rhythm without murmurs, gallops, or rubs. RESPIRATORY: Breath sounds equal bilaterally. No accessory muscle use. GASTROINTESTINAL: Abdomen soft, non-tender, nondistended. EXTREMITIES: No cyanosis, or edema. NEUROLOGICAL: Awake, alert, and oriented x 3. Non-focal. A/P Problem List: (1) Paresthesia ICD Code: R20.2 - Paresthesia of skin (2) Dizziness ICD Code: R42 - Dizziness and giddiness Assessment and Plan Neurological symptoms to include oral paresthesia, right upper extremity paresthesia, dizziness Could be secondary to TIA, vertigo, symptoms resolved after Cynthia maneuver CT, MRI, MRA, neck MRA did not indicate any acute abnormality Echocardiogram shows ejection fraction 55-60%, left ventricular function normal Holter monitor read is pending telemetry reviewed without any acute abnormality PT/OT/ST Patient started on Plavix, to stop aspirin after 2 days Lipitor and fish oil Discussed with Dr. Alfaro Hyperlipidemia LDL 128 Patient started on Lipitor 80 mg daily DVT prevention Sequential compression devices Discharge Planning Discharge home Follow up with primary care physician in one week, needs Holter to be reviewed Follow-up with Dr. Artis in 2 weeks Kimberly Jackson MD Nov 20, 2016 13:55
== END 2016-11-20 16:30 | disposition home or self-care (01) ==
LOC: PHED 16:07 → PHEDA 21:44 → PH3A 11-19 01:31
PROVIDERS: ADMIT Family Medicine; ATTEND Family Medicine
DX: G45.9 Transient cerebral ischemic attack, unspecified (principal); H81.12 Benign paroxysmal vertigo, left ear; R20.2 Paresthesia of skin; G43.909 Migraine, unspecified, not intractable, without status migrainosus; M25.562 Pain in left knee; H35.30 Unspecified macular degeneration; E78.5 Hyperlipidemia, unspecified; K59.00 Constipation, unspecified; R94.31 Abnormal electrocardiogram [ECG] [EKG]; Z85.828 Personal history of other malignant neoplasm of skin
CPT/HCPCS: 70450; 70544; 70548; 70553; 76937; 80048; 80053; 80061; 81001; 82607; 84443; 84484; 85007; 85025; 85027; 85610; 85652; 93005; 93225; 93226; 93306; 96360; 96361; 97110; 97116; 97162; 99285; A9579; G0378; G8987; G8988; J7030; J7050; 87086